=== PATIENT | female | born 1995 | race Caucasian/White ===

== ENCOUNTER 2018-03-25 15:30 | Emergency (ER) | payer OTHER ==
[2018-03-25 16:36] LABS: ABS Basophils 0 10^3/ul (0-0.2); ABS Eosinophils 0 10^3/ul (0-0.6); ABS Monocytes 0.7 10^3/ul (0-0.8); ABS Neutrophils 11.8 10^3/ul (1.5-7.7); ABS Nucleated RBC 0 10^3/ul; Eosinophil % 0.3 % (0-6); Hematocrit 39 % (35-47); Lymphocyte % 7.6 % (25-47); Mean Corpuscular HGB Conc 34 g/dl (31-36); Mean Corpuscular Hemoglobin 29 pg (27-31); Mean Corpuscular Volume 87 fL (80-97); Mean Platelet Volume 7.7 um3 (7.4-10.4); Nucleated Red Blood Cells % 0; Platelet Count 273 10^3/ul (150-450); Red Blood Count 4.44 10^6/ul (4.0-5.4); Red Cell Distribution Width 14 % (10.5-15); White Blood Count 13.6 10^3/ul (3.5-10.8)
[2018-03-25 16:54] LABS: EGFR Non-African American 91.4 (>60)
[2018-03-25 17:09] VITALS: BP 102/58
--- NOTE | 2018-03-25 18:32 | ED ---
Tex Cuello Stephanie, scribed for Darin Petit MD on 03/25/18 at 1656 . Abdominal Pain/Female - HPI Summary HPI Summary: The pt is a 22 y/o F presenting to the ED with c/o abd pain that began at 15:00 today. The pt states she had painful menorrhea cramps and hyperventilated but she feels much better now upon arriving at the hospital. She denies having a late period. Her abd pain lasted about 3 hrs until she took and Advil to relieve her pain. - History of Current Complaint Chief Complaint: EDAbdPain Stated Complaint: ABD PAIN Time Seen by Provider: 03/25/18 16:47 Hx Obtained From: Patient ?: No Onset/Duration: Gradual Onset, Lasting Days - 1, Resolved Timing: Constant Severity Currently: Mild Pain Intensity: 4 Pain Scale Used: 0-10 Numeric Location: Diffuse Radiates: No Aggravating Factor(s): Nothing Alleviating Factor(s): Nothing Allergies/Adverse Reactions: Allergies Allergy/AdvReac Type Severity Reaction Status Date / Time No Known Allergies Allergy Verified 03/25/18 15:35 PMH/Surg Hx/FS Hx/Imm Hx Sensory History: Denies: Hx Legally Blind EENT History: Denies: Hx Deafness - Surgical History Surgery Procedure, Year, and Place: NONE Infectious Disease History: No Infectious Disease History: Denies: Traveled Outside the [place] in Last 30 Days - Family History Known Family History: Negative: Renal Disease - Social History Occupation: Student Lives: Dormitory/Roommates Alcohol Use: Rare Hx Substance Use: No Hx Tobacco Use: No Smoking Status (MU): Never Smoked Tobacco Have You Smoked in the Last Year: No Review of Systems Negative: Fever Positive: Abdominal Pain All Other Systems Reviewed And Are Negative: Yes Physical Exam - Summary Physical Exam Summary: Appearance: Well appearing, no pain distress Skin: warm, dry, reflects adequate perfusion Head/face: normal Eyes: EOMI, ERLIN ENT: normal Neck: supple, non-tender Respiratory: CTA, breath sounds present Cardiovascular: RRR, pulses symmetrical Abdomen: non-tender, soft Bowel Sounds: present Musculoskeletal: normal, strength/ROM intact Neuro: normal, sensory motor intact, A&Ox3 Triage Information Reviewed: Yes Vital Signs On Initial Exam: Initial Vitals Temp Pulse Resp BP Pulse Ox 99.2 F 73 14 106/69 100 03/25/18 15:36 03/25/18 15:36 03/25/18 15:36 03/25/18 15:36 03/25/18 15:36 Vital Signs Reviewed: Yes Diagnostics - Vital Signs Vital Signs Temp Pulse Resp BP Pulse Ox 03/25/18 15:36 99.2 F 73 14 106/69 100 - Laboratory Lab Results: Lab Results 03/25/18 03/25/18 Range/Units 16:27 16:27 WBC 13.6 H (3.5-10.8) 10^3/ul RBC 4.44 (4.0-5.4) 10^6/ul Hgb 13.0 (12.0-16.0) g/dl Hct 39 (35-47) % MCV 87 (80-97) fL MCH 29 (27-31) pg MCHC 34 (31-36) g/dl RDW 14 (10.5-15) % Plt Count 273 (150-450) 10^3/ul MPV 7.7 (7.4-10.4) um3 Neut % (Auto) 86.8 H (38-83) % Lymph % (Auto) 7.6 L (25-47) % Wright % (Auto) 5.0 (0-7) % Eos % (Auto) 0.3 (0-6) % Baso % (Auto) 0.3 (0-2) % Absolute Neuts (auto) 11.8 H (1.5-7.7) 10^3/ul Absolute Lymphs (auto) 1.0 (1.0-4.8) 10^3/ul Absolute Monos (auto) 0.7 (0-0.8) 10^3/ul Absolute Eos (auto) 0 (0-0.6) 10^3/ul Absolute Basos (auto) 0 (0-0.2) 10^3/ul Absolute Nucleated RBC 0 10^3/ul Nucleated RBC % 0 Lactic Acid 1.7 (0.5-2.0) mmol/L Result Diagrams: 03/25/18 16:27 03/25/18 16:27 Lab Statement: Any lab studies that have been ordered have been reviewed, and results considered in the medical decision making process. Re-Evaluation - Re-Evaluation First Eval Change: Improved - Patient had full resolution of symptoms by the time of my Abdominal Pain Fem Course/Dx - Course Course Of Treatment: Patient has a history of intermittent dysmenorrhea. This happened to her today and she had what she describes as a "panic attack". By the time of my evaluation she had full resolution of symptoms. She refused any blood work. She has no pain on palpation of the abdomen. I suggested to her that testing is available to to her any time should she want reevaluation for her dysmenorrhea. She is not concerned about being as she just finished her menses. It is suggested that she follow-up with [facility] and /or her payment processor for further evaluation. - Diagnoses Provider Diagnoses: Anxiety reaction, Dysmenorrhea Discharge - Sign-Out/Discharge Documenting (check all that apply): Discharge/Admit/Transfer - discharge - Discharge Plan Condition: Improved Disposition: HOME Patient Education Materials: Dysmenorrhea (ED), Panic Attack (ED) Referrals: [facility] - [facility] [Primary Care Provider] - Additional Instructions: Ibuprofen as needed. We did not fully evaluate your abdominal cramping or request. Should you have more of this or want testing performed you may return. Return with fever, uncontrolled pain, worse or other concerns. Otherwise follow-up in the morning with a call to [facility]. - Billing Disposition and Condition Condition: IMPROVED Disposition: HOME The documentation as recorded by the Tex kearney Stephanie accurately reflects the service I personally performed and the decisions made by me, Darin Petit MD.
== END 2018-03-25 17:05 | disposition home or self-care (01) ==
LOC: ED 15:30
DX: F41.1 Generalized anxiety disorder (principal); N94.6 Dysmenorrhea, unspecified; R10.9 Unspecified abdominal pain
CPT/HCPCS: 36415; 80053; 83605; 83690; 84702; 85025; 86140; 99282